=== PATIENT | female | born 1965 | race American Indian/Alaskan Native ===

== ENCOUNTER 2017-07-31 11:29 | Outpatient (CLI) | payer OTHER ==
--- NOTE | 2017-08-01 15:31 | Mammography Report ---
BILATERAL DIGITAL SCREENING MAMMOGRAM with CAD : 07/31/17 11:29:00 CLINICAL: Routine screening.Previous right benign biopsy. COMPARISON:07/26/16 FINDINGS: The breasts are heterogeneously dense, which may obscure small masses.Stable right benign postsurgical changes. Stable extensive bilateral scattered benign calcifications. Left retroareolar circumscribed asymmetry is unchanged. No new mass, architectural distortion or suspicious calcifications. IMPRESSION: No mammographic evidence of malignancy. BI-RADS CATEGORY: 2 -- Benign RECOMMENDATION: Routine mammographic screening in one year. COMMENT: Patient follow-up letters are generated by our [employer] application.
== END 2017-07-31 11:30 | disposition home or self-care (01) ==
LOC: MAMMO 11:29
PROVIDERS: ATTEND Internal Medicine
DX: Z12.31 Encounter for screening mammogram for malignant neoplasm of breast (principal)
CPT/HCPCS: 77067; G0202